=== PATIENT | female | born 1980 | race Two or more races ===

== ENCOUNTER 2017-12-08 15:12 | Emergency (ER) | payer MEDICAID ==
[~2017-12-08] VITALS: Ht 160 cm; Wt 101.2 kg
[2017-12-08 15:58] LABS: Basophils # (auto) 0 uL; Basophils % (auto) 0.3 % (0.0-2.0); Eosinophils # (auto) 0.1 uL; Eosinophils % (auto) 1.8 % (0.0-7.0); Hematocrit 37.5 % (36.0-46.0); Hemoglobin 12.6 g/dL (12.2-16.2); Lymphocytes # (auto) 0.6 uL; Lymphocytes % (auto) 9.5 % (10.0-50.0); Mean Corpuscular Hemoglobin 29.4 pg (28.0-32.0); Mean Corpuscular Hgb Conc. 33.7 g/dL (32.0-36.0); Mean Corpuscular Volume 87.2 fL (80.0-100.0); Monocytes # (auto) 0.4 uL; Monocytes % (auto) 6.2 % (0.0-12.0); Neutrophils # (auto) 5.2 uL; Neutrophils % (auto) 82.2 % (37.0-80.0); Nucleated Red Blood Cells % 0.1 %; Platelet Count (auto) 314 10^3/uL (140-450); Red Cell Distribution Width 13.6 % (11.8-14.3); White Blood Cell 6.3 10^3/uL (4.4-10.8)
[2017-12-08 16:14] LABS: Alanine Aminotransferase 62 U/L (13-56); Albumin 3.4 g/dL (3.4-5.0); Anion Gap 11 (5-15); Aspartate Aminotransferase 27 U/L (15-37); BUN/Creatinine Ratio 16.9; Blood Urea Nitrogen 13 mg/dL (7-18); Calcium 8.5 mg/dL (8.5-10.1); Carbon Dioxide 24 mmol/L (21-32); Chloride 104 mmol/L (98-107); GFR African American 109 mL/min; GFR Non-African American 90 mL/min; Glucose 134 mg/dL (74-106); Magnesium 1.8 mg/dL (1.6-2.6); Potassium 3.3 mmol/L (3.5-5.1); Sodium 139 mmol/L (136-145)
[2017-12-08 16:20] LABS: Alkaline Phosphatase 121 U/L (45-117); Bilirubin, Total 0.4 mg/dL (0.2-1.0); Total Protein 7.5 g/dL (6.4-8.2)
[2017-12-08] MEDS ORDERED: ASPirin 81 mg TAB PO ONE (18:00)
[2017-12-08] MEDS ORDERED: KETOROLAC TROMETH 60MG/2ML VIAL IM ONE ×2 (18:00→20:30)
[2017-12-08 18:08] VITALS: BP 121/67
[2017-12-08 19:52] LABS: Alcohol, Urine < 3.0 mg/dL (0-5); Amphetamine Screen, Urine NEGATIVE (NEGATIVE); Barbiturate Scree,Urine NEGATIVE (NEGATIVE); Benzodiazephine Screen, Urine NEGATIVE (NEGATIVE); Cannabinoid Screen, Urine POSITIVE (NEGATIVE); Cocaine Screen, Urine NEGATIVE (NEGATIVE); Opiate Scree,Urine NEGATIVE (NEGATIVE); Phencyclidine Screen, Urine NEGATIVE (NEGATIVE)
[2017-12-08 19:54] LABS: Urine Bacteria NONE SEEN /hpf (None Seen); Urine Blood 1+ /uL (Negative); Urine Specific Gravity 1.028 (1.001-1.035); Urine WBC 1 /hpf (0 - 5)
[2017-12-08] MEDS ORDERED: NITROGLYCERIN 0.4 MG SL TAB SL ONE (20:15)
[2017-12-08] MEDS ORDERED: POTASSIUM CHL 10% (20 MEQ/15ML) 15ml ORAL SOLN PO ONE (20:15)
== END 2017-12-08 21:12 | disposition home or self-care (01) ==
LOC: ER 15:18 → EDBD 15:18 → ER 21:12
DX: K29.70 Gastritis, unspecified, without bleeding (principal); R07.89 Other chest pain; F12.10 Cannabis abuse, uncomplicated; Z79.82 Long term (current) use of aspirin
CPT/HCPCS: 36415; 71046; 74176; 80053; 80307; 81001; 83735; 84484; 85025; 93005; 96372; 99285; J1885

== ENCOUNTER 2018-02-26 09:42 | Emergency (ER) | payer MEDICAID ==
[~2018-02-26] VITALS: Ht 157.5 cm; Wt 116.1 kg
[2018-02-26 10:25] LABS: Basophils # (auto) 0.1 uL; Basophils % (auto) 0.9 % (0.0-2.0); Eosinophils # (auto) 0.1 uL; Eosinophils % (auto) 1.2 % (0.0-7.0); Hematocrit 41.8 % (36.0-46.0); Hemoglobin 13.9 g/dL (12.2-16.2); Lymphocytes # (auto) 1.2 uL; Lymphocytes % (auto) 10.9 % (10.0-50.0); Mean Corpuscular Hemoglobin 28.2 pg (28.0-32.0); Mean Corpuscular Hgb Conc. 33.2 g/dL (32.0-36.0); Monocytes # (auto) 0.7 uL; Monocytes % (auto) 6.1 % (0.0-12.0); Neutrophils # (auto) 8.7 uL; Neutrophils % (auto) 80.9 % (37.0-80.0); Platelet Count (auto) 350 10^3/uL (140-450); Red Blood Cells 4.92 10^6/uL (4.0-5.20); Red Cell Distribution Width 13.3 % (11.8-14.3); White Blood Cell 10.7 10^3/uL (4.4-10.8)
[2018-02-26 10:51] LABS: Albumin 3.5 g/dL (3.4-5.0); BUN/Creatinine Ratio 11.4; Bilirubin, Total 0.5 mg/dL (0.2-1.0); Calcium 8.5 mg/dL (8.5-10.1); Potassium 3.9 mmol/L (3.5-5.1); Total Protein 7.6 g/dL (6.4-8.2)
[2018-02-26 15:17] LABS: Urine Bacteria NONE SEEN /hpf (None Seen); Urine Blood Negative /uL (Negative); Urine Mucus FEW (None Seen); Urine Specific Gravity 1.036 (1.001-1.035); Urine WBC <1 /hpf (0 - 5)
[2018-02-26] MEDS ORDERED: MORPHINE SULFATE 8mg/ml INJ SDV IV ONE (15:30)
[2018-02-26] MEDS ORDERED: METOCLOPRAMIDE HCL 5MG/ml INJ 2ml VIAL IV ONE (15:30)
[2018-02-26 17:07] VITALS: BP 116/60
== END 2018-02-26 17:07 | disposition home or self-care (01) ==
LOC: ER 09:42
DX: R10.9 Unspecified abdominal pain (principal); E78.5 Hyperlipidemia, unspecified; Z98.51 Tubal ligation status; Z88.6 Allergy status to analgesic agent
CPT/HCPCS: 36415; 74176; 80053; 81001; 81025; 83690; 85025; 94761; 96374; 96375; 99285; J2270; J2765

== ENCOUNTER 2019-01-11 18:36 | Emergency (ER) | payer MEDICAID ==
[~2019-01-11] VITALS: Ht 160 cm; Wt 113.4 kg
[2019-01-11 18:45] VITALS: BP 122/68
[2019-01-11] MEDS ORDERED: ACETAMINOPHEN/CODEINE#3 (300/30mg) TAB PO ONE (19:15)
[2019-01-11] MEDS ORDERED: BACLOFEN 10 MG TAB PO ONE (19:15)
[2019-01-11] MEDS ORDERED: HYDROcodone-ACET 10/325MG TAB PO ONE (19:45)
== END 2019-01-11 20:04 | disposition home or self-care (01) ==
LOC: ER 18:36
DX: S33.5XXA Sprain of ligaments of lumbar spine, initial encounter (principal); M62.838 Other muscle spasm; M54.41 Lumbago with sciatica, right side; Z98.51 Tubal ligation status; Z90.49 Acquired absence of other specified parts of digestive tract; Z88.6 Allergy status to analgesic agent; W10.8XXA Fall (on) (from) other stairs and steps, initial encounter; Y93.01 Activity, walking, marching and hiking; Y92.89 Other specified places as the place of occurrence of the external cause; Y99.8 Other external cause status
CPT/HCPCS: 72100

== ENCOUNTER 2019-01-22 12:05 | Inpatient (IN) | payer MEDICAID ==
[~2019-01-22] VITALS: Ht 160 cm; Wt 111.0 kg
[2019-01-22] MEDS ORDERED: SODIUM CHLORIDE 0.9% 1,000 ML IVB ONE (13:00)
[2019-01-22] MEDS ORDERED: MORPHINE SULFATE 4 MG/ML SYR/VIAL IV ONE (13:00)
[2019-01-22] MEDS ORDERED: ONDANSETRON HCL 4 MG/2 ML VIAL IV ONE (13:00)
[2019-01-22 13:15] LABS: Basophils # (auto) 0 uL; Basophils % (auto) 0.3 % (0.0-2.0); Eosinophils # (auto) 0.1 uL; Eosinophils % (auto) 1.2 % (0.0-7.0); Hematocrit 41.3 % (36.0-46.0); Hemoglobin 13.8 g/dL (12.2-16.2); Lymphocytes # (auto) 1.4 uL; Mean Corpuscular Hemoglobin 29.6 pg (28.0-32.0); Mean Corpuscular Hgb Conc. 33.5 g/dL (32.0-36.0); Mean Corpuscular Volume 88.5 fL (80.0-100.0); Monocytes # (auto) 0.5 uL; Neutrophils # (auto) 6.8 uL; Neutrophils % (auto) 76.5 % (37.0-80.0); Nucleated Red Blood Cells % 0.1 %; Platelet Count (auto) 313 10^3/uL (140-450); Red Blood Cells 4.67 10^6/uL (4.0-5.20); Red Cell Distribution Width 13.4 % (11.8-14.3); White Blood Cell 8.9 10^3/uL (4.4-10.8)
[2019-01-22 13:29] LABS: Albumin 3.5 g/dL (3.4-5.0); Calcium 8.9 mg/dL (8.5-10.1); Magnesium 2.1 mg/dL (1.6-2.6); Potassium 3.6 mmol/L (3.5-5.1)
[2019-01-22 13:33] LABS: Bilirubin, Total 0.5 mg/dL (0.2-1.0); Total Protein 7.4 g/dL (6.4-8.2)
[2019-01-22] MEDS ORDERED: ONDANSETRON HCL 4 MG/2 ML VIAL IV PRN (16:45)
[2019-01-22 17:22] LABS: Urine Bacteria FEW /hpf (None Seen); Urine Blood Negative /uL (Negative); Urine Mucus FEW (None Seen); Urine Specific Gravity 1.026 (1.001-1.035); Urine WBC <1 /hpf (0 - 5)
[2019-01-22] MEDS: SODIUM CHLORIDE 0.9% 1,000 ML IV SCH (21:00)
[2019-01-22] MEDS: KETOROLAC TROMETH 30 MG/ML 1ML VIAL IV SCH (21:48)
[2019-01-22 22:00] VITALS: BP_SYST 103; BP_SYST 148; BP_DIAS 43; BP_DIAS 63
--- NOTE | 2019-01-22 22:00 | NUR ---
MS admit from [facility] admitted to tele/MS after SBAR received. Patient oriented to LADONNA GAGE, primary RN, unit, room, bed, and unit policies regarding patient care and visiting hours. Patient weighed by bedscale and encouraged to call if they need something. All questions and concerns addressed, patient verbalized understanding.
[2019-01-22] MEDS ORDERED: ATOR10TA52 PO (22:15)
[2019-01-22] MEDS ORDERED: MIRT15TA3 PO (22:24)
[2019-01-22] MEDS ORDERED: FLUV50TA PO (22:24)
[2019-01-22 23:13] VITALS: BP 103/43
[2019-01-22] MEDS: HYDROcodone-ACET 5/325MG TAB PO PRN (23:58)
[2019-01-23 05:00] VITALS: BP 95/41
[2019-01-23 05:55] LABS: Basophils # (auto) 0 uL; Basophils % (auto) 0.3 % (0.0-2.0); Eosinophils # (auto) 0.2 uL; Eosinophils % (auto) 2.6 % (0.0-7.0); Hemoglobin 12.9 g/dL (12.2-16.2); Lymphocytes # (auto) 1.6 uL; Lymphocytes % (auto) 24.1 % (10.0-50.0); Mean Corpuscular Hemoglobin 30.5 pg (28.0-32.0); Mean Corpuscular Volume 89.6 fL (80.0-100.0); Monocytes # (auto) 0.5 uL; Monocytes % (auto) 7.2 % (0.0-12.0); Neutrophils # (auto) 4.3 uL; Neutrophils % (auto) 65.8 % (37.0-80.0); Platelet Count (auto) 248 10^3/uL (140-450); Red Blood Cells 4.24 10^6/uL (4.0-5.20); Red Cell Distribution Width 13.3 % (11.8-14.3); White Blood Cell 6.5 10^3/uL (4.4-10.8)
[2019-01-23] MEDS: KETOROLAC TROMETH 30 MG/ML 1ML VIAL IV SCH (05:58)
[2019-01-23] MEDS: SODIUM CHLORIDE 0.9% 1,000 ML IV SCH ×2 (05:58→09:17)
[2019-01-23 06:22] LABS: Calcium 8.1 mg/dL (8.5-10.1); Potassium 4.2 mmol/L (3.5-5.1)
[2019-01-23 06:27] LABS: Albumin 3.1 g/dL (3.4-5.0); BUN/Creatinine Ratio 10.5; Bilirubin, Total 0.5 mg/dL (0.2-1.0); Total Protein 6.5 g/dL (6.4-8.2)
--- NOTE | 2019-01-23 06:53 | NUR ---
SIGN OFF PATIENT RESTING IN BED AND IN NO DISTRESS. PAIN MED ADMINISTERED AT 0600 SCHEDULED AND PATIENT NOW COMFORTABLE. BED IN LOWEST LOCKED POSITION AND CALL HARDEN W/IN REACH. ENDORSING CARE TO DAY RN.
--- NOTE | 2019-01-23 07:48 | NUR ---
Patient in bed, asleep. No acute distress noted.
[2019-01-23 09:00] VITALS: BP 94/67
--- NOTE | 2019-01-23 09:00 | NUR ---
Family member at bedside.
[2019-01-23] MEDS: HYDROcodone-ACET 5/325MG TAB PO PRN ×2 (09:17→16:32)
--- NOTE | 2019-01-23 09:17 | NUR ---
Patient stated her pain level at 10/10 at this time, aggravated by coughing. [place] 5/325 PO given for pain as ordered.
[2019-01-23] MEDS ORDERED: PANTOPRAZOLE 40 MG TAB PO SCH (10:00)
--- NOTE | 2019-01-23 10:10 | NUR ---
Amandeep Mann MD ordered stat MRCP, Cardiology Consult with Dr. Bernabe, GI Consult with Leon Dao, Abbey DM Q4 PRN for cough.
[2019-01-23] MEDS ORDERED: guaiFENesin-DM 100/10mg/5ml SYR PO PRN (10:15)
--- NOTE | 2019-01-23 11:05 | NUR ---
Robitussin-DM given for cough as ordered.
--- NOTE | 2019-01-23 11:35 | NUR ---
Amandeep Mann came over to see the patient. to put in orders for CT Angio if D-dimer is (+), follow up with Cardio and GI. to put in new orders.
--- NOTE | 2019-01-23 12:27 | NUR ---
Patient to be taken via wheelchair to Radiology for MRCP MRI as ordered. Patient awake, oriented x4, no acute distress noted.
[2019-01-23 13:00] VITALS: BP 115/92
--- NOTE | 2019-01-23 13:20 | NUR ---
Patient sitting in bed, awake, oriented x4. Patient stated her pain is on the left side of the chest area under the breast, not the stomach.
[2019-01-23] MEDS: MORPHINE SULF INJ 2 MG/ML SYRINGE 1ML IV PRN ×2 (13:35→19:49)
--- NOTE | 2019-01-23 13:35 | NUR ---
Morphine Sulf IVP given for pain as ordered.
--- NOTE | 2019-01-23 14:50 | NUR ---
Called Amandeep Mann Phone on voicemail. Left a message to call back.
--- NOTE | 2019-01-23 15:55 | NUR ---
SAMUEL BAKER OF [facility] WILL START HH CARE ON Monday01-25-19
--- NOTE | 2019-01-23 15:58 | NUR ---
IE FAXED TO REQUEST AUTH FOR [facility]
--- NOTE | 2019-01-23 16:32 | NUR ---
Patient stated she's in pain, at 9/10 at this time. [place] 5/325 PO given as ordered.
[2019-01-23 16:36] VITALS: BP 120/75
[2019-01-23] MEDS ORDERED: HYDR-4683 PO (18:39)
--- NOTE | 2019-01-23 18:40 | NUR ---
Made a follow up call to the office of Kalina Dao to relay the message to the MD regarding the GI Consult.
--- NOTE | 2019-01-23 18:45 | NUR ---
Called the office of Amandeep Mann Phone on voicemail. Left a message that Dr. Monreal was called for the GI Consult, made another follow up call, Dr. Monreal has not come in yet for GI Consult; Dr. Bernabe's recommendations on the Physician's Progress Notes. Waiting for Amandeep Mann to call back.
[2019-01-23] MEDS ORDERED: ASPI-231 PO (18:48)
--- NOTE | 2019-01-23 18:50 | NUR ---
Amandeep Mann called back that he has read Dr. Bernabe's recommendations as per Cardiology, wait for Kalina Dao to come over for GI Consult; if patient is okay to go home as per Cardiology and GI then discharge the patient tonight.
--- NOTE | 2019-01-23 20:19 | NUR ---
EKG COMPLETE. FINDINGS COMMUNICATED TO DR. OJEDA.
--- NOTE | 2019-01-23 20:20 | NUR ---
DR. OJEDA AND DR. REES CLEARED PATIENT FOR DISCHARGE. DR. OJEDA BY PHONE NOW AND DR. REES WAS AT BEDSIDE AT [facility] 1945.
[2019-01-23 20:56] VITALS: BP 120/75
[2019-01-23 21:52] VITALS: BP 104/60
--- NOTE | 2019-01-23 22:36 | NUR ---
Discharge instructions given as ordered. Encourage to follow up with PMD as instructed. All questions and concerns addressed. Patient verbalized understanding. Medication reconciliation form completed and copy given to patient. IV removed with catheter intact, pressure dressing applied. RN accompanied patient to the main lobby where she said she would wait for her spouse to pick her up. Patient took all her personal belongings with her. No distress noted at time of departure.
== END 2019-01-23 20:30 | disposition home health service (06) | DRG 145 ==
LOC: ER 12:13 → OVERFLOW 16:42 → WEST WING 21:55
PROVIDERS: ADMIT Internal Medicine; ATTEND Internal Medicine
DX: J20.9 Acute bronchitis, unspecified (principal); E66.01 Morbid (severe) obesity due to excess calories; M94.0 Chondrocostal junction syndrome [Tietze]; F12.90 Cannabis use, unspecified, uncomplicated; M54.9 Dorsalgia, unspecified; F32.9 Major depressive disorder, single episode, unspecified; E78.5 Hyperlipidemia, unspecified; Z68.42 Body mass index [BMI] 45.0-49.9, adult; Z90.49 Acquired absence of other specified parts of digestive tract; Z98.891 History of uterine scar from previous surgery; Z88.5 Allergy status to narcotic agent; Z98.51 Tubal ligation status
CPT/HCPCS: 36415; 71046; 74176; 74181; 76705; 80053; 81001; 83735; 84484; 84702; 85025; 85379; 93005; 94761; 96360; 96361; G0378; J1885; J2405

== ENCOUNTER 2019-04-30 22:13 | Emergency (ER) | payer MEDICAID ==
[~2019-04-30] VITALS: Ht 160 cm; Wt 120.2 kg
[~2019-04-30 22:13] MED LIST: ASPI-231 PO; ATOR10TA52 PO; FLUV50TA PO; HYDR-4683 PO; MIRT15TA3 PO
[2019-04-30 22:51] LABS: Basophils # (auto) 0.1 uL; Eosinophils # (auto) 0.2 uL; Lymphocytes % (auto) 25.4 % (10.0-50.0); Mean Corpuscular Hemoglobin 29.8 pg (28.0-32.0); Mean Corpuscular Hgb Conc. 34.2 g/dL (32.0-36.0); Mean Corpuscular Volume 87.2 fL (80.0-100.0); Monocytes # (auto) 0.6 uL; Monocytes % (auto) 7.5 % (0.0-12.0); Neutrophils # (auto) 4.9 uL; Neutrophils % (auto) 63.1 % (37.0-80.0); Nucleated Red Blood Cells % 0.1 %; Platelet Count (auto) 321 10^3/uL (140-450); Red Cell Distribution Width 13.5 % (11.8-14.3); White Blood Cell 7.7 10^3/uL (4.4-10.8)
[2019-04-30 23:11] LABS: Albumin 3.7 g/dL (3.4-5.0); Amylase 47 U/L (25-115); Anion Gap 9 (5-15); Aspartate Aminotransferase 19 U/L (15-37); BUN/Creatinine Ratio 10.6; Blood Urea Nitrogen 10 mg/dL (7-18); Calcium 8.3 mg/dL (8.5-10.1); Carbon Dioxide 25 mmol/L (21-32); Chloride 106 mmol/L (98-107); GFR African American 86 mL/min; GFR Non-African American 71 mL/min; Glucose 144 mg/dL (74-106); Lipase 75 U/L (73-393); Potassium 3.5 mmol/L (3.5-5.1); Sodium 140 mmol/L (136-145)
[2019-04-30 23:16] LABS: Alanine Aminotransferase 27 U/L (13-56); Alkaline Phosphatase 99 U/L (45-117); Bilirubin, Total 0.6 mg/dL (0.2-1.0); Total Protein 7.8 g/dL (6.4-8.2)
[2019-05-01] MEDS ORDERED: ASPirin 81 mg TAB PO ONE (04:45)
[2019-05-01] MEDS ORDERED: KETOROLAC TROMETH 60MG/2ML VIAL IM ONE (05:00)
[2019-05-01 05:41] VITALS: BP 142/67
[2019-05-01 06:11] LABS: Urine Bacteria NONE SEEN /hpf (None Seen); Urine Blood 1+ /uL (Negative); Urine Mucus MODERATE (None Seen); Urine Specific Gravity 1.041 (1.001-1.035); Urine WBC 5 /hpf (0 - 5)
== END 2019-05-01 06:37 | disposition home or self-care (01) ==
LOC: ER 22:17
DX: R07.2 Precordial pain (principal); I10 Essential (primary) hypertension; Z90.49 Acquired absence of other specified parts of digestive tract; Z88.5 Allergy status to narcotic agent; Z79.82 Long term (current) use of aspirin; Z79.899 Other long term (current) drug therapy
CPT/HCPCS: 36415; 71045; 80053; 81001; 81025; 82150; 83690; 84484; 85025; 93005; 96372; 99284; J1885

== ENCOUNTER 2019-06-11 12:25 | Emergency (ER) | payer MEDICAID ==
[~2019-06-11] VITALS: Ht 160 cm; Wt 107.0 kg
[~2019-06-11 12:25] MED LIST changes: -HYDR-4683 PO; +HYDR-4833 PO; -MIRT15TA3 PO; +MIRT1TAB38 PO
[2019-06-11 15:11] VITALS: BP 121/75
[2019-06-11 15:18] LABS: Urine Bacteria FEW /hpf (None Seen); Urine Blood Negative /uL (Negative); Urine Mucus FEW (None Seen); Urine Specific Gravity 1.035 (1.001-1.035); Urine WBC <1 /hpf (0 - 5)
[2019-06-11] MEDS ORDERED: KETOROLAC TROMETH 60MG/2ML VIAL IM ONE (15:45)
[2019-06-11] MEDS ORDERED: HYDROcodone-ACET 10/325MG TAB PO ONE (15:45)
== END 2019-06-11 17:18 | disposition home or self-care (01) ==
LOC: ER 12:25
DX: M54.5 Low back pain (principal); I10 Essential (primary) hypertension; F12.10 Cannabis abuse, uncomplicated; Z90.79 Acquired absence of other genital organ(s); Z98.51 Tubal ligation status; Z88.6 Allergy status to analgesic agent
CPT/HCPCS: 74176; 81001; 82962; 96372; 99284; J1885

== ENCOUNTER 2019-11-02 12:43 | Emergency (ER) | payer MEDICAID ==
[~2019-11-02] VITALS: Ht 160 cm; Wt 113.4 kg
[~2019-11-02 12:43] MED LIST changes: -HYDR-4833 PO
[2019-11-02 12:58] VITALS: BP 141/85
[2019-11-02 15:55] LABS: Basophils # (auto) 0.1 uL; Basophils % (auto) 0.6 % (0.0-2.0); Eosinophils # (auto) 0.3 uL; Eosinophils % (auto) 3.5 % (0.0-7.0); Hematocrit 43.5 % (36.0-46.0); Hemoglobin 14.5 g/dL (12.2-16.2); Lymphocytes # (auto) 1.4 uL; Lymphocytes % (auto) 14.9 % (10.0-50.0); Mean Corpuscular Hemoglobin 29.1 pg (28.0-32.0); Mean Corpuscular Hgb Conc. 33.4 g/dL (32.0-36.0); Mean Corpuscular Volume 87.1 fL (80.0-100.0); Monocytes # (auto) 0.5 uL; Monocytes % (auto) 5.7 % (0.0-12.0); Neutrophils # (auto) 6.9 uL; Neutrophils % (auto) 75.3 % (37.0-80.0); Platelet Count (auto) 329 10^3/uL (140-450); Red Blood Cells 4.99 10^6/uL (4.0-5.20); Red Cell Distribution Width 13.5 % (11.8-14.3); White Blood Cell 9.1 10^3/uL (4.4-10.8)
[2019-11-02 16:10] LABS: Albumin 3.9 g/dL (3.4-5.0); Anion Gap 6 (5-15); Blood Urea Nitrogen 8 mg/dL (7-18); Calcium 9.1 mg/dL (8.5-10.1); Carbon Dioxide 25 mmol/L (21-32); Chloride 109 mmol/L (98-107); Glucose 157 mg/dL (74-106); Potassium 3.5 mmol/L (3.5-5.1); Sodium 140 mmol/L (136-145)
[2019-11-02 16:15] LABS: Alanine Aminotransferase 55 U/L (13-56); Alkaline Phosphatase 132 U/L (45-117); Aspartate Aminotransferase 38 U/L (15-37); BUN/Creatinine Ratio 9.8; Bilirubin, Total 0.8 mg/dL (0.2-1.0); GFR African American 100 mL/min; GFR Non-African American 83 mL/min; Total Protein 8.1 g/dL (6.4-8.2)
== END 2019-11-02 23:30 | disposition left against medical advice (07) ==
LOC: ER 12:43
DX: R10.10 Upper abdominal pain, unspecified (principal); Z53.21 Procedure and treatment not carried out due to patient leaving prior to being seen by health care provider
CPT/HCPCS: 36415; 74176; 80053; 84484; 85025

== ENCOUNTER 2019-11-03 08:23 | Emergency (ER) | payer MEDICAID ==
[~2019-11-03] VITALS: Ht 160 cm; Wt 113.4 kg
[2019-11-03] MEDS: cefTRIAXone 1GM/50ML D5W 50 ML IV ONE (09:23)
[2019-11-03 09:35] LABS: Basophils # (auto) 0 uL; Basophils % (auto) 0.4 % (0.0-2.0); Eosinophils # (auto) 0.1 uL; Eosinophils % (auto) 1.3 % (0.0-7.0); Hematocrit 39.6 % (36.0-46.0); Hemoglobin 13.4 g/dL (12.2-16.2); Lymphocytes % (auto) 18.3 % (10.0-50.0); Mean Corpuscular Hemoglobin 29.3 pg (28.0-32.0); Mean Corpuscular Hgb Conc. 33.9 g/dL (32.0-36.0); Mean Corpuscular Volume 86.4 fL (80.0-100.0); Monocytes # (auto) 0.4 uL; Monocytes % (auto) 6.3 % (0.0-12.0); Neutrophils # (auto) 4.2 uL; Neutrophils % (auto) 73.7 % (37.0-80.0); Platelet Count (auto) 269 10^3/uL (140-450); Red Blood Cells 4.58 10^6/uL (4.0-5.20); Red Cell Distribution Width 13.7 % (11.8-14.3); White Blood Cell 5.7 10^3/uL (4.4-10.8)
[2019-11-03 09:48] LABS: Albumin 3.3 g/dL (3.4-5.0); Anion Gap 9 (5-15); Blood Urea Nitrogen 10 mg/dL (7-18); Calcium 8.3 mg/dL (8.5-10.1); Carbon Dioxide 22 mmol/L (21-32); Chloride 108 mmol/L (98-107); Glucose 212 mg/dL (74-106); Potassium 3.2 mmol/L (3.5-5.1); Sodium 139 mmol/L (136-145)
[2019-11-03 09:51] LABS: Alanine Aminotransferase 49 U/L (13-56); Aspartate Aminotransferase 26 U/L (15-37); BUN/Creatinine Ratio 12.2; GFR African American 100 mL/min; GFR Non-African American 83 mL/min
[2019-11-03] MEDS: ALBUTEROL SULF 2.5 MG/0.5ML(0.5%) NEB SOLN NEB ONE (09:54)
[2019-11-03 09:56] LABS: Alkaline Phosphatase 110 U/L (45-117); Bilirubin, Total 0.9 mg/dL (0.2-1.0)
[2019-11-03 10:43] VITALS: BP 110/68
[2019-11-03 10:45] LABS: Urine Bacteria NONE SEEN /hpf (None Seen); Urine Blood 1+ /uL (Negative); Urine Mucus FEW (None Seen); Urine Specific Gravity 1.026 (1.001-1.035); Urine WBC 1 /hpf (0 - 5)
[2019-11-03] MEDS ORDERED: POTASSIUM EFFERVESENT TAB 25 MEQ PO ONE (11:15)
== END 2019-11-03 11:27 | disposition home or self-care (01) ==
LOC: ER 08:23 → EDBD 08:23 → ER 11:10
DX: R07.89 Other chest pain (principal); J40 Bronchitis, not specified as acute or chronic; E86.0 Dehydration; E11.65 Type 2 diabetes mellitus with hyperglycemia; E87.6 Hypokalemia; I10 Essential (primary) hypertension; Z98.51 Tubal ligation status; Z90.49 Acquired absence of other specified parts of digestive tract
CPT/HCPCS: 36415; 71045; 80053; 81001; 84484; 85025; 93005; 94640; 96365; 99284; J0696; J7611

== ENCOUNTER 2019-11-20 10:26 | Emergency (ER) | payer MEDICAID ==
[~2019-11-20] VITALS: Ht 160 cm; Wt 106.6 kg
[2019-11-20 11:07] VITALS: BP 143/79
== END 2019-11-20 11:36 | disposition home or self-care (01) ==
LOC: ER 10:26
DX: J20.9 Acute bronchitis, unspecified (principal); E11.9 Type 2 diabetes mellitus without complications; I10 Essential (primary) hypertension
CPT/HCPCS: 71046; 82962

== ENCOUNTER 2020-05-08 08:40 | Emergency (ER) | payer MEDICAID ==
[~2020-05-08] VITALS: Ht 160 cm; Wt 113.4 kg
[2020-05-08] MEDS ORDERED: SODIUM CHLORIDE 0.9% 1,000 ML IV ONE ×2 (08:57→10:10)
[2020-05-08] MEDS ORDERED: ONDANSETRON HCL 4 MG/2 ML VIAL IV ONE ×2 (09:00→12:15)
[2020-05-08] MEDS ORDERED: KETOROLAC TROMETH 30 MG/ML 1ML VIAL IV ONE (09:00)
[2020-05-08 09:45] LABS: Basophils # (auto) 0 10 ^3/uL (0-0.2); Basophils % (auto) 0.5 % (0.0-2.0); Eosinophils # (auto) 0.3 10 ^3/uL (0-0.8); Eosinophils % (auto) 3.5 % (0.0-7.0); Hematocrit 42.4 % (36.0-46.0); Hemoglobin 14.3 g/dL (12.2-16.2); Lymphocytes # (auto) 1.5 10 ^3/uL (0.4-5.4); Lymphocytes % (auto) 14.8 % (10.0-50.0); Mean Corpuscular Hemoglobin 29.7 pg (28.0-32.0); Mean Corpuscular Hgb Conc. 33.6 g/dL (32.0-36.0); Mean Corpuscular Volume 88.5 fL (80.0-100.0); Monocytes # (auto) 0.6 10 ^3/uL (0-1.3); Monocytes % (auto) 5.9 % (0.0-12.0); Neutrophils # (auto) 7.5 10 ^3/uL (1.6-8.6); Neutrophils % (auto) 75.3 % (37.0-80.0); Platelet Count (auto) 341 10^3/uL (140-450); Red Blood Cells 4.79 10^6/uL (4.0-5.20); Red Cell Distribution Width 13.9 % (11.8-14.3); White Blood Cell 9.9 10^3/uL (4.4-10.8)
[2020-05-08 09:54] LABS: Urine Bacteria NONE SEEN /hpf (None Seen); Urine Blood Negative /uL (Negative); Urine Mucus FEW (None Seen); Urine Specific Gravity 1.027 (1.001-1.035); Urine WBC 1 /hpf (0 - 5)
[2020-05-08 10:04] LABS: Calcium 8.7 mg/dL (8.5-10.1); Chloride 108 mmol/L (98-107); Glucose 176 mg/dL (74-106); Lipase 150 U/L (73-393); Potassium 3.5 mmol/L (3.5-5.1); Sodium 139 mmol/L (136-145)
[2020-05-08 10:12] LABS: Alanine Aminotransferase 27 U/L (13-56); Albumin 3.6 g/dL (3.4-5.0); Alkaline Phosphatase 157 U/L (45-117); Anion Gap 5 (5-15); Aspartate Aminotransferase 14 U/L (15-37); BUN/Creatinine Ratio 10.3; Bilirubin, Total 0.3 mg/dL (0.2-1.0); Blood Urea Nitrogen 8 mg/dL (7-18); Carbon Dioxide 26 mmol/L (21-32); GFR African American 106 mL/min; GFR Non-African American 87 mL/min; Total Protein 7.6 g/dL (6.4-8.2)
[2020-05-08] MEDS ORDERED: TAMSULOSIN HYDROCHLORIDE 0.4 MG CAP PO ONE (10:15)
[2020-05-08] MEDS ORDERED: MORPHINE SULFATE 4 MG/ML SYR/VIAL IV ONE (12:15)
[2020-05-08 12:30] VITALS: BP 105/57
== END 2020-05-08 13:23 | disposition home or self-care (01) ==
LOC: ER 08:40
DX: N20.0 Calculus of kidney (principal); E86.0 Dehydration; E11.9 Type 2 diabetes mellitus without complications; I10 Essential (primary) hypertension; Z98.51 Tubal ligation status; Z90.49 Acquired absence of other specified parts of digestive tract
CPT/HCPCS: 36415; 71046; 74176; 80053; 81001; 83690; 84484; 85025; 93005; 96361; 96374; 96375; 96376; 99285; J1885; J2270; J2405; J7030

== ENCOUNTER 2020-06-05 11:18 | Inpatient (IN) | payer MEDICAID ==
[~2020-06-05] VITALS: Ht 160 cm; Wt 105.0 kg
[2020-06-05] MEDS ORDERED: SODIUM CHLORIDE 0.9% 1,000 ML IVB ONE (11:27)
[2020-06-05] MEDS ORDERED: MORPHINE SULFATE 4 MG/ML SYR/VIAL IV ONE (11:30)
[2020-06-05] MEDS ORDERED: ONDANSETRON HCL 4 MG/2 ML VIAL IV ONE (11:30)
[2020-06-05 11:56] LABS: Basophils # (auto) 0 10 ^3/uL (0-0.2); Basophils % (auto) 0.4 % (0.0-2.0); Eosinophils # (auto) 0.2 10 ^3/uL (0-0.8); Eosinophils % (auto) 2.7 % (0.0-7.0); Hematocrit 42.3 % (36.0-46.0); Hemoglobin 14.2 g/dL (12.2-16.2); Lymphocytes # (auto) 1.4 10 ^3/uL (0.4-5.4); Lymphocytes % (auto) 16.9 % (10.0-50.0); Mean Corpuscular Hemoglobin 29.9 pg (28.0-32.0); Mean Corpuscular Hgb Conc. 33.7 g/dL (32.0-36.0); Mean Corpuscular Volume 88.7 fL (80.0-100.0); Monocytes # (auto) 0.5 10 ^3/uL (0-1.3); Neutrophils # (auto) 6.2 10 ^3/uL (1.6-8.6); Nucleated Red Blood Cells % 0.1 %; Platelet Count (auto) 314 10^3/uL (140-450); Red Blood Cells 4.77 10^6/uL (4.0-5.20); Red Cell Distribution Width 14.1 % (11.8-14.3); White Blood Cell 8.4 10^3/uL (4.4-10.8)
[2020-06-05 12:00] LABS: Urine Bacteria NONE SEEN /hpf (None Seen); Urine Blood 3+ /uL (Negative); Urine Mucus FEW (None Seen); Urine Specific Gravity 1.036 (1.001-1.035); Urine WBC 1 /hpf (0 - 5)
[2020-06-05 12:10] LABS: Albumin 3.9 g/dL (3.4-5.0); Calcium 8.9 mg/dL (8.5-10.1); Potassium 3.3 mmol/L (3.5-5.1)
[2020-06-05 12:13] LABS: BUN/Creatinine Ratio 8.4; Bilirubin, Total 0.5 mg/dL (0.2-1.0); Total Protein 7.6 g/dL (6.4-8.2)
[2020-06-05] MEDS ORDERED: metroNIDAZOLE 500MG/100ML 100 ML IV ONE (13:45)
[2020-06-05] MEDS ORDERED: HYDROcodone-ACET 5/325MG TAB PO PRN (18:00)
[2020-06-05] MEDS ORDERED: DEXTROSE (50%) 50ML SYRG IV PRN (18:00)
[2020-06-05] MEDS ORDERED: ACETAMINOPHEN 500 MG TAB PO PRN (18:00)
[2020-06-05] MEDS ORDERED: POTASSIUM CHL 20 Meq TABLET PO ONE (18:15)
[2020-06-05] MEDS: SODIUM CHLORIDE 0.9% 1,000 ML IV SCH (18:53)
--- NOTE | 2020-06-05 20:15 | NUR ---
MS admit from [facility] admitted to tele/MS. Patient oriented to Lisandra Bunch, RN primary RN, unit, room, bed, and unit policies regarding patient care and visiting hours. Patient weighed by bedscale and encouraged to call if they need something. All questions and concerns addressed, patient verbalized understanding. Secondary RN at bedside for admission. Fall and safety precautions in place. Call light within reach.
[2020-06-05 20:20] VITALS: BP 104/47
[2020-06-05] MEDS: ACCU-CHEK COMFORT CURVE STRIP VI SCH (21:38)
[2020-06-05] MEDS: ONDANSETRON HCL 4 MG/2 ML VIAL IV PRN (21:38)
[2020-06-05] MEDS: MORPHINE SULF INJ 2 MG/ML SYRINGE 1ML IV PRN (21:38)
[2020-06-05] MEDS ORDERED: ALBUAER3 IN (21:44)
[2020-06-05] MEDS ORDERED: METF-370 PO (21:44)
[2020-06-05] MEDS ORDERED: ATOR40TA52 PO (21:44)
[2020-06-05] MEDS: InsuLIN REG 1unit/0.01ml Soln (100units/ml) SC SCH (21:44)
[2020-06-05] MEDS ORDERED: ONDA-144 PO (21:44)
[2020-06-05 22:00] VITALS: BP 123/67
[2020-06-06] MEDS: ONDANSETRON HCL 4 MG/2 ML VIAL IV PRN ×4 (04:57→23:00)
[2020-06-06] MEDS: MORPHINE SULF INJ 2 MG/ML SYRINGE 1ML IV PRN ×5 (04:57→23:00)
[2020-06-06 05:00] VITALS: BP 110/66
--- NOTE | 2020-06-06 06:00 | NUR ---
MRSA MRSA swab obtained of nares per MD order and sent to lab via bullet
[2020-06-06] MEDS: SODIUM CHLORIDE 0.9% 1,000 ML IV SCH ×3 (06:23→23:46)
[2020-06-06] MEDS: ACCU-CHEK COMFORT CURVE STRIP VI SCH ×4 (06:41→21:15)
[2020-06-06] MEDS: InsuLIN REG 1unit/0.01ml Soln (100units/ml) SC SCH ×4 (06:41→21:10)
--- NOTE | 2020-06-06 07:00 | NUR ---
Opening Shift Note Received report on the patient. Awake lying in bed. Patient shows no signs of distress at this time. Discussed plan of care with the patient. Bed in lowest position, side rails up x2, and the call light is within reach.
[2020-06-06 08:00] LABS: Basophils # (auto) 0 10 ^3/uL (0-0.2); Basophils % (auto) 0.5 % (0.0-2.0); Eosinophils # (auto) 0.2 10 ^3/uL (0-0.8); Eosinophils % (auto) 3.2 % (0.0-7.0); Hemoglobin 12.6 g/dL (12.2-16.2); Lymphocytes # (auto) 1.5 10 ^3/uL (0.4-5.4); Lymphocytes % (auto) 20.8 % (10.0-50.0); Mean Corpuscular Hemoglobin 29.6 pg (28.0-32.0); Mean Corpuscular Hgb Conc. 33.3 g/dL (32.0-36.0); Mean Corpuscular Volume 89.1 fL (80.0-100.0); Monocytes # (auto) 0.5 10 ^3/uL (0-1.3); Monocytes % (auto) 6.7 % (0.0-12.0); Neutrophils # (auto) 4.8 10 ^3/uL (1.6-8.6); Neutrophils % (auto) 68.8 % (37.0-80.0); Platelet Count (auto) 245 10^3/uL (140-450); Red Blood Cells 4.27 10^6/uL (4.0-5.20); Red Cell Distribution Width 13.9 % (11.8-14.3)
[2020-06-06 08:40] LABS: BUN/Creatinine Ratio 7.2
[2020-06-06 08:44] LABS: Potassium 3.8 mmol/L (3.5-5.1)
--- NOTE | 2020-06-06 08:46 | NUR ---
Patient stated she needs a breathing treatment. Called Dr Ortez (professional bass fisher). New orders received.
--- NOTE | 2020-06-06 08:47 | NUR ---
Paged RT for breathing treatment
[2020-06-06 09:00] VITALS: BP 123/69
[2020-06-06] MEDS: ALBUTEROL SULF 2.5 MG/0.5ML(0.5%) NEB SOLN NEB PRN ×2 (09:37→19:08)
[2020-06-06] MEDS: PANTOPRAZOLE 40 MG TAB PO SCH (09:38)
[2020-06-06 13:00] VITALS: BP 123/80
--- NOTE | 2020-06-06 15:11 | NUR ---
Patient is nauseous and vomiting. Did not tolerate clear liquid diet.
[2020-06-06 17:00] VITALS: BP 131/72
--- NOTE | 2020-06-06 19:30 | NUR ---
Opening Shift Note Assume patient care from Sharon SANCHEZ. Patient currently in bed and denies vomiting or nausea at this time. Patient request Ice chips and crackers to snack on. Patient educated to not eat if vomiting, patient aware and verbally agreed to not eat if vomiting. No s/s of distress or SOB at this time. Patient laying supine w/ HOB at 30 degrees. Patient bed locked in lowest position w/ call light within reach. Will continue to monitor.
[2020-06-06 22:00] VITALS: BP 117/61
--- NOTE | 2020-06-06 23:00 | NUR ---
Complaints of Pain Patient complains of abdominal pain. Pain medication given as prescribed. Will continue to monitor.
[2020-06-07] MEDS: SODIUM CHLORIDE 0.9% 1,000 ML IV SCH ×3 (02:00→18:00)
[2020-06-07] MEDS ORDERED: metroNIDAZOLE 500MG/100ML 100 ML IV SCH (02:00)
[2020-06-07 05:47] VITALS: BP 158/52
[2020-06-07] MEDS: ONDANSETRON HCL 4 MG/2 ML VIAL IV PRN ×4 (05:50→20:30)
[2020-06-07] MEDS: MORPHINE SULF INJ 2 MG/ML SYRINGE 1ML IV PRN ×4 (05:50→20:30)
--- NOTE | 2020-06-07 05:50 | NUR ---
PATIENT FEELING NAUSEA AND PAIN PATIENT GIVEN MEDICATION FOR PAIN AND NAUSEA PRESCRIBED. WILL CONTINUE TO MONITOR.
[2020-06-07 06:06] LABS: Basophils # (auto) 0 10 ^3/uL (0-0.2); Basophils % (auto) 0.2 % (0.0-2.0); Eosinophils # (auto) 0.2 10 ^3/uL (0-0.8); Eosinophils % (auto) 3.3 % (0.0-7.0); Hematocrit 35.6 % (36.0-46.0); Lymphocytes # (auto) 1.2 10 ^3/uL (0.4-5.4); Lymphocytes % (auto) 18.4 % (10.0-50.0); Mean Corpuscular Hemoglobin 30.1 pg (28.0-32.0); Mean Corpuscular Hgb Conc. 33.6 g/dL (32.0-36.0); Mean Corpuscular Volume 89.4 fL (80.0-100.0); Monocytes # (auto) 0.5 10 ^3/uL (0-1.3); Monocytes % (auto) 7.2 % (0.0-12.0); Neutrophils # (auto) 4.5 10 ^3/uL (1.6-8.6); Neutrophils % (auto) 70.9 % (37.0-80.0); Nucleated Red Blood Cells % 0.1 %; Platelet Count (auto) 228 10^3/uL (140-450); Red Blood Cells 3.99 10^6/uL (4.0-5.20); Red Cell Distribution Width 13.6 % (11.8-14.3); White Blood Cell 6.4 10^3/uL (4.4-10.8)
[2020-06-07] MEDS: ALBUTEROL SULF 2.5 MG/0.5ML(0.5%) NEB SOLN NEB PRN (06:14)
[2020-06-07 06:31] LABS: BUN/Creatinine Ratio 4.5; Calcium 8.1 mg/dL (8.5-10.1); Potassium 3.3 mmol/L (3.5-5.1)
[2020-06-07] MEDS: ACCU-CHEK COMFORT CURVE STRIP VI SCH ×4 (06:31→21:45)
[2020-06-07] MEDS: InsuLIN REG 1unit/0.01ml Soln (100units/ml) SC SCH ×4 (06:32→21:47)
[2020-06-07 09:00] VITALS: BP 125/70
[2020-06-07] MEDS: levoFLOXacin 500MG 100 ML IV SCH (10:20)
[2020-06-07] MEDS: metroNIDAZOLE 500MG/100ML 100 ML IV SCH ×2 (10:20→18:32)
[2020-06-07] MEDS: PANTOPRAZOLE 40 MG TAB PO SCH (10:22)
[2020-06-07] MEDS: ENOXAPARIN SOD 40 MG/0.4 ML SYRINGE SC SCH (10:22)
--- NOTE | 2020-06-07 10:23 | NUR ---
NAUSEA AND PAIN PATIENT GIVEN MEDICATION FOR PAIN AND NAUSEA PRESCRIBED. WILL CONTINUE TO MONITOR.
[2020-06-07 13:00] VITALS: BP 119/75
--- NOTE | 2020-06-07 14:46 | NUR ---
NAUSEA AND PAIN PATIENT GIVEN MEDICATION FOR PAIN AND NAUSEA PRESCRIBED. WILL CONTINUE TO MONITOR
--- NOTE | 2020-06-07 15:55 | NUR ---
Est energy needs 0824-4462 kcal (14-18 kcal/kg BW 107kg) Est protein needs 52-78g (1-1.5g/kg IBW 52.3kg) Will reassess prn. Addendum: 06/07/20 at [address] Amended: Links added.
[2020-06-07 17:00] VITALS: BP 127/72
--- NOTE | 2020-06-07 18:18 | NUR ---
PT ASSESSED FOR PRN MED NEB TX. SPO2 99% ON 2L NC, HR 60. PT DENIES ANY RESPIRATORY DISTRESS. NO TX INDICATED. PT IS AWARE TO HAVE RT PAGED IF TX NEEDED.
--- NOTE | 2020-06-07 18:30 | NUR ---
Headache Patent complains of headache 02/13. Patient was offered [place] 5/325 for moderate pain. Patient requesting Tylenol. Will medicate at this time.
--- NOTE | 2020-06-07 19:45 | NUR ---
Opening Shift Note Received report on the patient. Awake lying in bed. Patient shows no signs of distress at this time. Discussed plan of care with the patient. Bed locked in lowest position, side rails up x2, and the call light is within reach.
--- NOTE | 2020-06-07 20:30 | NUR ---
PATIENT COMPLAINS OF SEVERE PAIN W/ NAUSEA PATIENT GIVEN PAIN MEDICATION AND ANTI-EMETIC PRESCRIBED. WILL CONTINUE TO MONITOR.
[2020-06-07] MEDS: ATORVASTATIN 20 MG TAB PO SCH (21:45)
[2020-06-07 22:10] VITALS: BP 132/81
[2020-06-08] MEDS: metroNIDAZOLE 500MG/100ML 100 ML IV SCH ×3 (01:28→17:18)
[2020-06-08] MEDS: SODIUM CHLORIDE 0.9% 1,000 ML IV SCH ×3 (01:28→18:00)
[2020-06-08] MEDS: ONDANSETRON HCL 4 MG/2 ML VIAL IV PRN ×5 (01:28→20:55)
[2020-06-08] MEDS: MORPHINE SULF INJ 2 MG/ML SYRINGE 1ML IV PRN ×5 (01:29→23:06)
--- NOTE | 2020-06-08 02:00 | NUR ---
PATIENT COMPLAINS OF SEVERE PAIN AND NAUSEA PATIENT GIVEN PAIN MEDICATION AND ANTI-EMETIC PRESCRIBED. WILL CONTINUE TO MONITOR.
[2020-06-08 05:37] VITALS: BP 112/59
[2020-06-08] MEDS: ACCU-CHEK COMFORT CURVE STRIP VI SCH ×4 (06:22→22:51)
[2020-06-08] MEDS: InsuLIN REG 1unit/0.01ml Soln (100units/ml) SC SCH ×4 (06:30→22:00)
[2020-06-08 06:38] LABS: Basophils # (auto) 0 10 ^3/uL (0-0.2); Basophils % (auto) 0.3 % (0.0-2.0); Eosinophils # (auto) 0.3 10 ^3/uL (0-0.8); Eosinophils % (auto) 4.2 % (0.0-7.0); Hemoglobin 12.3 g/dL (12.2-16.2); Lymphocytes # (auto) 1.3 10 ^3/uL (0.4-5.4); Lymphocytes % (auto) 21.3 % (10.0-50.0); Mean Corpuscular Hemoglobin 29.8 pg (28.0-32.0); Mean Corpuscular Hgb Conc. 33.2 g/dL (32.0-36.0); Mean Corpuscular Volume 89.9 fL (80.0-100.0); Monocytes # (auto) 0.5 10 ^3/uL (0-1.3); Neutrophils # (auto) 4.1 10 ^3/uL (1.6-8.6); Neutrophils % (auto) 66.2 % (37.0-80.0); Nucleated Red Blood Cells % 0.1 %; Platelet Count (auto) 215 10^3/uL (140-450); Red Blood Cells 4.11 10^6/uL (4.0-5.20); Red Cell Distribution Width 13.6 % (11.8-14.3); White Blood Cell 6.2 10^3/uL (4.4-10.8)
[2020-06-08 07:05] LABS: Potassium 3.5 mmol/L (3.5-5.1)
--- NOTE | 2020-06-08 07:16 | NUR ---
PRN [place] TX NOT INDICATED AT THIS TIME. PT IS AWAKE,ALERT AND ORIENTED. PT ON RA, 98% O2 SATS, HR 59 BPM,RR17 BPM, BS ARE CLEAR TO AUSCULTATION, SKIN IS WARM AND DRY TO THE TOUCH. PT DENIES SOB OR ANY OTHER RESPIRATORY DISTRESS. PT INSTRUCTED TO CALL IF [place] TX IS INDICATED. WILL CONTINUE TO MONITOR PT.
[2020-06-08 07:18] LABS: BUN/Creatinine Ratio 3.9
--- NOTE | 2020-06-08 07:30 | NUR ---
RECEIVED REPORT FROM NIGHT NURSE. PATIENT RESTING IN BED, NO DISTRESS NOTED. WILL CONTINUE TO MONITOR.
--- NOTE | 2020-06-08 08:10 | NUR ---
BREAKFAST PATIENT NOT TOLERATING CLEAR LIQUID DIET, STATES SHE DOESN'T KNOW IF ITS JUST THAT FOOD THAT'S MAKING HER SICK, OR JUST HER STOMACH. NAUSEA AND VOMITING AFTER EATING. MEDICATION GIVEN, WILL CONTINUE TO MONITOR.
[2020-06-08 09:10] VITALS: BP 117/72
--- NOTE | 2020-06-08 09:13 | NUR ---
DR. GUZMAN AT BEDSIDE.
[2020-06-08] MEDS: PANTOPRAZOLE 40 MG TAB PO SCH ×3 (10:00→22:50)
--- NOTE | 2020-06-08 10:00 | NUR ---
DR. JONES AT BEDSIDE. EKG COMPLETED AND GIVEN TO DR JONES.
[2020-06-08] MEDS: ENOXAPARIN SOD 40 MG/0.4 ML SYRINGE SC SCH (10:17)
[2020-06-08] MEDS: levoFLOXacin 500MG 100 ML IV SCH (10:17)
[2020-06-08] MEDS: SUCRALFATE 1 GM/10 ML ORAL SUSP PO SCH ×3 (11:42→22:50)
--- NOTE | 2020-06-08 12:00 | NUR ---
SANDRO NEUMANN PATIENT HAS HOME MEDICATIONS BEING HELD IN THE PHARMACY. PATIENT REQUESTING TO HAVE ONE OF HER MEDICATIONS THAT IS HER DAUGHTER'S RETURNED TO HER, SO SHE CAN GIVE THEM TO HER DAUGHTER. MEDICATION RETRIEVED FROM PHARMACY. PATIENT SIGNED PAPERWORK STATING THAT MEDICATION WAS SENT HOME. MEDICATION PHYSICALLY HANDED TO PATIENT IN SEALED BAG TO BE PICKED UP LATER BY FAMILY.
[2020-06-08 12:34] VITALS: BP 131/77
--- NOTE | 2020-06-08 12:50 | NUR ---
SPOKE WITH DR. LEROY BY TELEPHONE. ORDERS RECEIVED, WILL PLACE AND CARRY OUT.
--- NOTE | 2020-06-08 12:55 | NUR ---
NPO PATIENT EATING LUNCH, CLEAR LIQUID DIET. ORDER FOR NPO RECEIVED. TRAY REMOVED, PATIENT NPO FROM THIS POINT ON.
[2020-06-08 15:19] LABS: INR 1.1 (0.9-1.15)
--- NOTE | 2020-06-08 16:08 | NUR ---
CONSENTS SIGNED FOR PROCEDURE SCHEDULED FOR TONIGHT 06/08/20. PLACED IN CHART.
[2020-06-08 16:55] VITALS: BP 114/60
--- NOTE | 2020-06-08 17:50 | NUR ---
TRANSPORTED PT DOWN TO PACU FOR PROCEDURE WITH [facility] [employer].
--- NOTE | 2020-06-08 18:02 | NUR ---
SPOKE WITH PACU, PATIENT IS ON THE SCHEDULE FOR CYSTOSCOPY/ LITHOTRIPSY TONIGHT AT [address] LEROY
--- NOTE | 2020-06-08 19:00 | NUR ---
Opening Shift Note Received report on the patient. Awake lying in bed. Patient shows no signs of distress at this time. Discussed plan of care with the patient. Bed locked in lowest position, side rails up x2, and the call light is within reach. PT ORIENTED TO ROOM AND USE OF CALL LIGHT. PACU CALLED AND STATED THEY ARE READY FOR PT TO COME DOWN FOR PROCEDURE.
[2020-06-08] MEDS ORDERED: KETOROLAC TROMETH 30 MG/ML 1ML VIAL ONE (19:54)
[2020-06-08] MEDS ORDERED: PROPOFOL 10 MG/ML 20 ML IV ONE (19:54)
[2020-06-08] MEDS ORDERED: fentaNYL CITRATE 100 MCG/2 ML VL ONE (19:54)
[2020-06-08] MEDS ORDERED: MIDAZOLAM HCL 1MG/1ML-2 ML VIAL ONE (19:54)
[2020-06-08] MEDS ORDERED: LIDOCAINE 2% (LOCAL ANESTH.) PF 5ml SDV ONE (19:54)
[2020-06-08] MEDS ORDERED: DexAMETHasone SOD PHOS 10MG/1ML VIAL INJ ONE (19:54)
[2020-06-08] MEDS ORDERED: GLYCOPYRROLATE 0.2 MG/ML 1ML VIAL ONE (19:54)
[2020-06-08] MEDS ORDERED: ONDANSETRON HCL 4 MG/2 ML VIAL ONE ×2 (19:54→20:43)
--- NOTE | 2020-06-08 20:29 | NUR ---
DR. LEROY TO THE BEDSIDE, DISCUSSED POC WITH PATIENT AT THIS TIME. PATIENT SURGICAL PROCEDURE CANCELLED, MEDICATED PER ANESTHESIA FOR PAIN AND NAUSEA, REPORT PROVIDED, FLOOR RN TO COME TO PACU TO RECEIVE PATIENT.
[2020-06-08] MEDS ORDERED: MANNITOL FTV 25% 12.5 GM/50 ML 50 ML IV ONE ×2 (20:30→20:45)
--- NOTE | 2020-06-08 20:34 | NUR ---
MD Childress telephoned and stated stone was not able to be visualized an dpt having pain on right right side of abd, not the left. the sx was cancelled and new medications were ordered. states pt will have EGD tomorrow as previously planned. spoke to Alona, DISTRICT DIRECTOR as well and she endorsed the same information as MD Childress.
[2020-06-08] MEDS ORDERED: MEPERIDINE HCL (25 MG/ML) 1ML VIAL IM ONE (20:45)
[2020-06-08] MEDS ORDERED: FAMOTIDINE (10MG/ML) 2ML VL IV ONE (20:45)
[2020-06-08] MEDS: ATORVASTATIN 20 MG TAB PO SCH (22:51)
--- NOTE | 2020-06-09 00:03 | NUR ---
Respiratory note: PT SEEN FOR PRN MED NEB TX AT 0003. TREATMENT IS NOT INDICATED AT THIS TIME. NO RESPIRATORY DISTRESS NOTED. HR 44 RR 16 SP02 95% ON ROOM AIR. PT AWARE TO CALL FOR RESPIRATORY IF ANY DISTRESS OCCURS.
[2020-06-09] MEDS: MORPHINE SULF INJ 2 MG/ML SYRINGE 1ML IV PRN ×2 (02:51→06:57)
[2020-06-09] MEDS: metroNIDAZOLE 500MG/100ML 100 ML IV SCH (02:58)
[2020-06-09] MEDS: SODIUM CHLORIDE 0.9% 1,000 ML IV SCH (02:59)
[2020-06-09 05:05] VITALS: BP 103/59
[2020-06-09] MEDS: ACCU-CHEK COMFORT CURVE STRIP VI SCH ×2 (06:51→11:30)
[2020-06-09] MEDS: InsuLIN REG 1unit/0.01ml Soln (100units/ml) SC SCH ×2 (06:51→11:30)
[2020-06-09 06:54] LABS: Basophils # (auto) 0 10 ^3/uL (0-0.2); Basophils % (auto) 0.3 % (0.0-2.0); Eosinophils # (auto) 0.2 10 ^3/uL (0-0.8); Eosinophils % (auto) 4.1 % (0.0-7.0); Hematocrit 35.5 % (36.0-46.0); Hemoglobin 12.2 g/dL (12.2-16.2); Lymphocytes # (auto) 1.3 10 ^3/uL (0.4-5.4); Lymphocytes % (auto) 21.8 % (10.0-50.0); Mean Corpuscular Hemoglobin 30.6 pg (28.0-32.0); Mean Corpuscular Hgb Conc. 34.4 g/dL (32.0-36.0); Mean Corpuscular Volume 88.9 fL (80.0-100.0); Monocytes # (auto) 0.4 10 ^3/uL (0-1.3); Monocytes % (auto) 7.7 % (0.0-12.0); Neutrophils # (auto) 3.8 10 ^3/uL (1.6-8.6); Neutrophils % (auto) 66.1 % (37.0-80.0); Platelet Count (auto) 212 10^3/uL (140-450); Red Blood Cells 3.99 10^6/uL (4.0-5.20); Red Cell Distribution Width 13.5 % (11.8-14.3); White Blood Cell 5.8 10^3/uL (4.4-10.8)
[2020-06-09] MEDS: SUCRALFATE 1 GM/10 ML ORAL SUSP PO SCH ×2 (06:56→11:15)
[2020-06-09 07:23] LABS: Potassium 3.4 mmol/L (3.5-5.1)
[2020-06-09 07:28] LABS: BUN/Creatinine Ratio 3.9; Calcium 8.2 mg/dL (8.5-10.1)
--- NOTE | 2020-06-09 07:30 | NUR ---
Opening Shift Note Assuming care of patient at this time. Patient is awake and alert. Patient denies pain. Patient shows no signs or symptoms of distress or shortness of breath. Bed is locked and lowered with side rails up x2. Instructed patient on the plan of care for today and to call for assistance as needed. Call light within reach. Will continue to round hourly and as needed.
--- NOTE | 2020-06-09 09:00 | NUR ---
Patient taken to OR Patient taken to OR at this time. No distress noted. Awaiting return to unit.
[2020-06-09] MEDS ORDERED: LIDOCAINE VISCOUS 2% 15ML UD ONE (09:20)
[2020-06-09] MEDS ORDERED: NALOXONE HCL 0.4 MG/ML VIAL ONE (09:20)
[2020-06-09] MEDS ORDERED: SODIUM CHLORIDE LOCK 10 ML ONE (09:20)
[2020-06-09] MEDS ORDERED: FLUMAZENIL 0.1 MG/ML INJ 10ML MDV IV ONE (09:20)
[2020-06-09] MEDS ORDERED: diphenhdrAMINE HCL 50 MG/1 ML VL ONE (09:21)
[2020-06-09 09:24] VITALS: BP 123/68
[2020-06-09] MEDS ORDERED: POTASSIUM CHL 20MEQ/100ML 100 ML IV ONE (09:30)
[2020-06-09] MEDS: MIDAZOLAM HCL 5 MG/ML-1ML VIAL ONE ×2 (09:33→09:36)
[2020-06-09] MEDS: fentaNYL CITRATE 100 MCG/2 ML VL ONE ×2 (09:33→09:36)
[2020-06-09] MEDS ORDERED: METR500T PO (09:36)
[2020-06-09] MEDS ORDERED: LEVO500T21 PO (09:36)
[2020-06-09] MEDS ORDERED: PANT40T PO (09:49)
[2020-06-09] MEDS ORDERED: levoFLOXacin 500 MG TAB PO SCH (10:00)
[2020-06-09] MEDS: ENOXAPARIN SOD 40 MG/0.4 ML SYRINGE SC SCH (10:00)
[2020-06-09] MEDS: PANTOPRAZOLE 40 MG TAB PO SCH (11:00)
[2020-06-09 12:56] VITALS: BP 130/71
[2020-06-09] MEDS ORDERED: metroNIDAZOLE 500 MG TAB PO SCH (14:00)
[2020-06-09 14:08] VITALS: BP 130/71
--- NOTE | 2020-06-09 15:47 | NUR ---
Nutrition Followup Note Wt 105.0kg Pt was not on floor at time of rounds, pt was off for surgery. Pt diet advanced to CCHO 60g per MD order. Will continue to monitor pt po intake and tolerance of advanced diet Est energy needs 0530-1247 kcal (14-18 kcal/kg BW 107kg) Est protein needs 52-78g (1-1.5g/kg IBW 52.3kg) Will reassess prn. Labs: BUN 3L, Ca 8.2L, GLUC 114H, Alb 3.9 WNL BM: pt with 1 BM 8/4 per RN note Skin: 21 low risk, full details in daycare worker note PES: Obesity r/t caloric intake in excess of needs aeb pt with a BMI of 41.8kg/m2 Comments 1) Continue to monitor pt po status, labs, skin 2) Refer pt to [facility] on DC 3) COntinue current plan of care Expected Outcomes/Goals: 1) Pt diet to advance 2) pt po intake >75% 3) f/u 2-3 days
--- NOTE | 2020-06-09 16:15 | NUR ---
Discharge Discharge instructions given as ordered. Encourage to follow up with PMD as instructed. Patient aware that she needs to call and make an appointment as office does not make third green party appointments. Patient given information for Dr. Childress and Dr. Morris for follow-up. Patient aware she will need a referral for follow-up. All questions and concerns addressed. Patient verbalized understanding. Medication reconciliation form completed and copy given to patient. Home medications held in Pharmacy returned to patient. IV removed with catheter intact, pressure dressing applied. Patient taken to vehicle via wheelchair with all personal belongings, accompanied by staff. No distress noted at time of departure.
== END 2020-06-09 16:30 | disposition home or self-care (01) | DRG 244 ==
LOC: ER 11:18 → OVERFLOW 11:19 → WEST WING 20:16
PROVIDERS: ADMIT Nurse Practitioner Family; ATTEND Internal Medicine
PROC: 0DB68ZX Excision of Stomach, Via Natural or Artificial Opening Endoscopic, Diagnostic (ICD-10-PCS; principal; 2020-06-09 09:30)
DX: K57.32 Diverticulitis of large intestine without perforation or abscess without bleeding (principal); N20.2 Calculus of kidney with calculus of ureter; E11.9 Type 2 diabetes mellitus without complications; E66.01 Morbid (severe) obesity due to excess calories; J45.909 Unspecified asthma, uncomplicated; E78.5 Hyperlipidemia, unspecified; R16.0 Hepatomegaly, not elsewhere classified; E87.6 Hypokalemia; Z79.82 Long term (current) use of aspirin; Z87.442 Personal history of urinary calculi; Z68.41 Body mass index [BMI] 40.0-44.9, adult; K29.70 Gastritis, unspecified, without bleeding; K29.80 Duodenitis without bleeding; Z80.9 Family history of malignant neoplasm, unspecified; Z82.49 Family history of ischemic heart disease and other diseases of the circulatory system; Z83.3 Family history of diabetes mellitus; Z90.49 Acquired absence of other specified parts of digestive tract; Z88.6 Allergy status to analgesic agent; Z88.5 Allergy status to narcotic agent; Z91.048 Other nonmedicinal substance allergy status; Z20.828 Contact with and (suspected) exposure to other viral communicable diseases
CPT/HCPCS: 36415; 43239; 74018; 74176; 80048; 80053; 81001; 82150; 82962; 83036; 83690; 84702; 85025; 85610; 86850; 86900; 86901; 87081; 93005; 94640; G0378; J1100; J1815; J1885; J1956; J2001; J2250; J2405; J2704; J3480; J3490